=== PATIENT | female | born 2000 | race Caucasian/White ===

== ENCOUNTER 2022-07-06 12:46 | Emergency (ER) | payer OTHER, SELFPAY ==
[2022-07-06 12:47] VITALS: BP 101/61; PULSE 65; RESP 15; TEMP 36.6; O2SAT 100; BMI 24.8
--- NOTE | 2022-07-06 13:17 | EKG12_ITS ---
Test Reason : SOB Blood Pressure : / mmHG Vent. Rate : 061 BPM Atrial Rate : 061 BPM P-R Int : 134 ms QRS Dur : 080 ms QT Int : 436 ms P-R-T Axes : 009 075 039 degrees QTc Int : 438 ms Normal sinus rhythm with sinus arrhythmia Low voltage QRS Borderline ECG Confirmed by VANEC MORRISON, KATIANA ([id number]), commissioning editor CANDACE SAL ([id number]) on 07/10/2022 10:39:15 AM Referred By: JOB Confirmed By:KATIANA WOODARD MD
--- NOTE | 2022-07-06 13:18 | EX.ED.DYSGE1 ---
HPI History of Present Illness Chief Complaint: Shortness of Breath Informant: patient Onset/Context/Timing Onset: Days Context: Gradual Onset Current Severity: Mild Maximum Severity: Mild Narrative Narrative: Patient presents secondary to increased shortness of breath. She is currently 24 weeks with her first . She is noted increased shortness of breath the past several days. No significant cough. No fever or chills. She is a history of [id number]-Klncqulwa-Pxslb and underwent ablation just prior to her . 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 She is here visiting. [facility] Medical History Scoliosis Olnlx-Vumzqlthd-Jmtpq (WPW) syndrome Medical History no medical history Home Medications docusate sodium 100 mg capsule (DOK) 100 mg PO BID ##28 06/15/16 [Rx Last Taken Unknown] famotidine 20 mg tablet 20 mg PO BID ##60 06/15/16 [Rx Last Taken Unknown] ondansetron 4 mg disintegrating tablet 4 mg PO Q8H PRN PRN Nausea ##10 06/15/16 [Rx Last Taken Unknown] polyethylene glycol 3350 17 gram/dose oral powder (Miralax) 17 g PO DAILY ##765 06/15/16 [Rx Last Taken Unknown] Allergy/AdvReac Type Severity Reaction Status Date / Time No Known Allergies Allergy Verified 07/06/22 12:47 Social History Smoking Status: Never smoker ROS ROS ED Constitutional Constitutional ED: Denies chills or fever(s) Eyes Eyes: Denies change in vision or discharge from eye(s) ENT ENT ED: Denies discharge from eye(s), rhinorrhea or sore throat Cardiovascular Cardiovascular: Denies chest pain or palpitations Respiratory/Chest Respiratory/Chest: Reports dyspnea; Denies cough Gastrointestinal Gastrointestinal: Denies abdominal pain, diarrhea, nausea or vomiting Genitourinary Genitourinary ED: Denies dysuria Musculoskeletal Musculoskeletal: Denies back pain or extremity pain Integumentary Denies Abrasions or rash Neurologic Neurologic: Denies headache(s) or weakness Allergic/Immunologic Allergic/Immunologic ED: Denies lip swelling or urticaria EXAM Physical Exam Const Vital Signs: 07/06/22 12:47 07/06/22 13:11 07/06/22 14:53 Temperature 97.8 F Temperature Source Temporal Pulse Rate 65 65 Respiratory Rate 15 14 Respiratory Effort Short of Breath Respiratory Depth Normal Respiratory Pattern Normal Blood Pressure 101/61 93/62 Blood Pressure Mean 74 Pulse Ox 100 99 Oxygen Delivery Method Room Air Positive well nourished and well developed General Appearance ED: well developed HEENT Reports normocephalic and head/scalp atraumatic Eyes PERRL and EOMs intact bilaterally Neck supple Chest Wall inspection of chest normal and palpation of chest normal Resp normal respiratory effort and clear to auscultation bilaterally Cardio regular rate and regular rhythm GI normal to inspection, nondistended, normoactive bowel sounds Palpation: soft Extremity normal to inspection Extremity Narrative: No lower extremity edema Neuro oriented x3 and no sensory deficits noted Sensorium / Orientation: alert Motor Exam: strength 5/5 throughout Psych mental status grossly normal Skin no rashes or lesions noted MDM MDM MDM Narrative Medical decision making narrative: Patient placed on equipment monitor phototypesetting. EKG, chest x-ray, lab work obtained. Lab Data Attestation: I reviewed the patient's lab results. Labs: Laboratory Results - last 24 hr 07/06/22 07/06/22 07/06/22 13:25 13:25 13:25 WBC 14.9 H RBC 3.86 L Hgb 11.5 L Hct 34.3 L MCV 88.9 MCH 29.8 MCHC 33.5 RDW Std Deviation 40.0 RDW Coeff of Howard 12.4 Plt Count 237 MPV 8.9 Immature Gran % (Auto) 0.900 Neut % (Auto) 75.8 H Lymph % (Auto) 14.1 L Hyde % (Auto) 8.1 Eos % (Auto) 0.8 Baso % (Auto) 0.3 Absolute Neuts (auto) 11.3 H Absolute Lymphs (auto) 2.10 Nucleated RBC % 0 D-Dimer Quant (PE/DVT) Sodium 139 Potassium 3.7 Chloride 106 Carbon Dioxide 24.0 Anion Gap 9 BUN 8 Creatinine 0.48 L Estim Creat Clear Calc 157.40 Est GFR (MDRD) Af Amer 203 Est GFR (MDRD) Non-Af 167 BUN/Creatinine Ratio 16.5 Glucose 75 Calcium 8.7 B-Natriuretic Peptide 40.5 07/06/22 14:15 WBC RBC Hgb Hct MCV MCH MCHC RDW Std Deviation RDW Coeff of Howard Plt Count MPV Immature Gran % (Auto) Neut % (Auto) Lymph % (Auto) Hyde % (Auto) Eos % (Auto) Baso % (Auto) Absolute Neuts (auto) Absolute Lymphs (auto) Nucleated RBC % D-Dimer Quant (PE/DVT) 0.47 Sodium Potassium Chloride Carbon Dioxide Anion Gap BUN Creatinine Estim Creat Clear Calc Est GFR (MDRD) Af Amer Est GFR (MDRD) Non-Af BUN/Creatinine Ratio Glucose Calcium B-Natriuretic Peptide Radiography Chest X-Ray - ED: 1 View, Read by ED Physician, Normal, Heart, Lungs and Mediastinum Diagnostic Testing: Clinical Impression(s) from Imaging Studies Chest X-Ray 07/06/22 13:45 IMPRESSION: Normal x-ray examination of the chest. Electronically Signed: Beni Morales MD at 13:58 EDT , EKG Initial EKG: Attestation: I personally reviewed and interpreted this EKG as follows: Interpretation: Sinus Rhythm (Sinus at 61 with no acute ischemia.) Treatment and Re-Evaluation Narrative: CBC reveals white count elevated at 14.9 with 75% neutrophils. Chemistry studies unremarkable. BNP is normal. D-dimer is normal at 0.47. Chest x-ray is clear per my interpretation. Radiology interpretation is reviewed and agrees. EKG reveals no ischemia. Patient has had no arrhythmias while here on the monitor. heart tones are measured at 150. She is reassured with her work-up. She will continue supportive care and follow-up with her physicians in [place] next week when she returns home. Discharge Plan Triage Chief Complaint: Shortness of Breath ED Provider: Judy Martinez Dx/Rx/DC Orders Clinical Impression: Dyspnea Instructions: ED Dyspnea Prescriptions: No Action famotidine 20 MG tablet 20 mg PO BID Qty: 60 0RF docusate sodium [DOK] 100 MG capsule 100 mg PO BID Qty: 28 0RF polyethylene glycol 3350 [Miralax] 119 GM Powder 17 g PO DAILY Qty: 765 0RF Rx Instructions: Use for 2 weeks or you can stop after having several days of consistently soft stools ondansetron 4 MG tablet 4 mg PO Q8H PRN PRN (Reason: Nausea) Qty: 10 0RF Primary Care Provider: Care Physician,No Primary Referrals: Care Physician,No Primary [Primary Care Provider] - Activity Restrictions/Additional Instructions: Follow-up with your physician upon return home next week. Disposition Disposition: Home, Self Care Discharge Date/Time: 07/06/22 15:01
[2022-07-06 13:33] LABS: Absolute Neutrophil Count 11.3 X10^3/uL (2.0-7.7); Basophil# 0.04 X10^3/uL; Basophil% 0.3 % (0-1); Eosinophil# 0.12 X10^3/uL; Eosinophils% 0.8 % (0-5); Hematocrit 34.3 % (37-47); Hemoglobin 11.5 g/dL (12.0-15.0); Lymphocyte % 14.1 % (19-41); Mean Corp Hgb Conc 33.5 g/dL (32-36); Mean Corpuscular Hgb 29.8 pg (27.0-32.0); Mean Corpuscular Volume 88.9 fL (81-99); Mean Platelet Vol. 8.9 fl (6.2-12.0); Monocyte% 8.1 % (0-10); NRBC Flagged by Analyzer 0 % (0-5); Neutrophil # 11.26 X10^3/uL (2.7-7.7); Neutrophil % 75.8 % (47-70); Platelet Count 237 K/mm3 (150-450); RBC Distribution Width CV 12.4 % (11.6-14.6); Red Blood Count 3.86 M/mm3 (4.2-5.4); White Blood Count 14.9 K/mm3 (4.4-11.0)
[2022-07-06 13:45] LABS: Anion Gap 9 (5-15); BUN 8 mg/dL (7-18); BUN/Creat Ratio 16.5 RATIO (10-20); Calcium,Total 8.7 mg/dL (8.5-10.1); Chloride 106 mmol/L (98-107); Creatinine, Serum 0.48 mg/dL (0.55-1.02); EST Glomerular Filtration Rate 167 mL/min (>60); Est Glom Filt Rate - Afr Amer 203 mL/min (>60); Glucose 75 mg/dL (74-106); Potassium 3.7 mmol/L (3.5-5.1); Sodium Level 139 mmol/L (136-145)
--- NOTE | 2022-07-06 13:45 | RAD_ITS ---
STUDY: X-RAY CHEST REASON FOR EXAM: Female, 21 years old. sob -- please shield abdomen - 24wks preg TECHNIQUE: Single AP portable view of the chest. COMPARISON: Comparison is made with prior study 06/15/2016. FINDINGS: EKG electrodes are seen. The lungs are clear and expanded. There is no demonstrated pleural abnormality. Normal size heart. Normal mediastinum and luz. Normal visualized pulmonary arteries. Normal visualized aortic arch and descending thoracic aorta. Normal visualized thoracic spine. Normal visualized ribs, clavicles, and shoulders. There is no demonstrated abnormality of the visualized soft tissue structures of the upper abdomen. RAD/Chest 1 View (Portable) IMPRESSION: Normal x-ray examination of the chest. Electronically Signed: Beni Morales MD at 13:58 EDT ,
[2022-07-06 13:47] LABS: BNP,B-Type NATRIURETIC PEPTIDE 40.5 pg/mL (0-100)
[2022-07-06 14:42] LABS: D-Dimer Quantitative (DVT/PE) 0.47 FEU/ug/m (0.27-0.49)
[2022-07-06 14:53] VITALS: BP 93/62; PULSE 65; RESP 14; O2SAT 99
== END 2022-07-06 15:01 | disposition home or self-care (01) ==
PROVIDERS: Emergency Provider Emergency Medicine; Visit Provider Emergency Medicine
DX: O26.892 Other specified pregnancy related conditions, second trimester (principal); R06.00 Dyspnea, unspecified; Z3A.24 24 weeks gestation of pregnancy
CPT/HCPCS: 71045; 80048; 83880; 85025; 85379; 93005; 99284; A4216